=== PATIENT | female | born 1945 | race Two or more races ===

== ENCOUNTER → 2017-05-31 | Outpatient (CLI) | payer OTHER | END | disposition home or self-care (01) | LOC: RAD 501 11:00 | DX: M25.511 Pain in right shoulder (principal) ==

== ENCOUNTER 2019-05-20 11:17 | Outpatient (CLI) | payer OTHER | END 2019-05-20 11:22 | disposition home or self-care (01) | LOC: MAMO-SONO 11:17 | DX: Z12.31 Encounter for screening mammogram for malignant neoplasm of breast (principal); N63.10 Unspecified lump in the right breast, unspecified quadrant; N63.20 Unspecified lump in the left breast, unspecified quadrant; Z87.898 Personal history of other specified conditions ==

== ENCOUNTER → 2019-12-11 | Outpatient (CLI) | payer OTHER | END | disposition home or self-care (01) | LOC: SONOGRAMA 11:06 | PROVIDERS: ATTEND Internal Medicine | DX: M25.561 Pain in right knee (principal); M25.562 Pain in left knee; N93.8 Other specified abnormal uterine and vaginal bleeding ==

== ENCOUNTER 2020-02-18 09:36 | Outpatient (CLI) | payer OTHER | END 2020-02-18 09:54 | disposition home or self-care (01) | LOC: MRI 09:36 | PROVIDERS: ATTEND Internal Medicine | DX: M25.462 Effusion, left knee (principal); M25.561 Pain in right knee; M25.562 Pain in left knee | CPT/HCPCS: 73718 ==

== ENCOUNTER 2020-02-18 12:09 | Outpatient (CLI) | payer OTHER | END 2020-02-18 13:20 | disposition home or self-care (01) | LOC: OFIC 805 12:09 | PROVIDERS: ATTEND Otolaryngology | DX: H68.103 Unspecified obstruction of Eustachian tube, bilateral (principal); H90.3 Sensorineural hearing loss, bilateral; H73.23 Unspecified myringitis, bilateral ==

== ENCOUNTER 2020-08-16 10:38 | Outpatient (CLI) | payer OTHER | END 2020-08-16 13:03 | disposition home or self-care (01) | LOC: EDBD → RAD | PROVIDERS: ATTEND Orthopaedic Surgery | DX: M25.551 Pain in right hip (principal); M25.552 Pain in left hip; M25.561 Pain in right knee; M25.562 Pain in left knee ==

== ENCOUNTER 2021-02-02 08:00 | Outpatient (CLI) | payer OTHER | END 2021-02-02 08:30 | disposition home or self-care (01) | LOC: PPH VACUNA 08:00 | PROVIDERS: ATTEND Emergency Medicine Pediatric Emergency Medicine | DX: Z23 Encounter for immunization (principal) ==

== ENCOUNTER 2021-08-31 08:00 | Outpatient (CLI) | payer OTHER | END 2021-08-31 08:30 | disposition home or self-care (01) | LOC: PPH VACUNA 08:00 | PROVIDERS: ATTEND Emergency Medicine Pediatric Emergency Medicine | DX: Z23 Encounter for immunization (principal) ==

== ENCOUNTER → 2022-06-19 | Outpatient (CLI) | payer OTHER | END | disposition home or self-care (01) | LOC: NUCLEAR 08:00 | PROVIDERS: ATTEND Internal Medicine | DX: G45.9 Transient cerebral ischemic attack, unspecified (principal) ==